=== PATIENT | female | born 1970 | race Caucasian/White ===

== ENCOUNTER 2022-11-16 19:14 | Emergency (ER) | payer OTHER ==
[~2022-11-16] VITALS: Ht 165.1 cm; Wt 94.3 kg
[2022-11-16 19:35] VITALS: BP_SYST 130
[2022-11-16 21:29] VITALS: BP_SYST 130
[2022-11-16] MEDS ORDERED: IBUPROFEN 600 MG TABLET PO ONE (21:30)
== END 2022-11-16 21:29 ==
LOC: SED 19:14
DX: Z02.89 Encounter for other administrative examinations (principal); Z79.899 Other long term (current) drug therapy
CPT/HCPCS: 99283